=== PATIENT | male | born 1945 | race Caucasian/White ===

== ENCOUNTER → 2018-02-13 | Outpatient (CLI) | payer MEDICARE, OTHER ==
[~2018-02-13] MED LIST: ACET-1966 PO; AMLO-96 PO; AMLO2.5T74 PO; ASPI-1471 PO; CHOL10005 PO; FAMO-67 PO; LATA2.5D5 OP; MULT-865 PO; OLME40TA28 PO; PNEU0.5D3 IM; RANI-366 PO; ROSU20TA23 PO; ROSU40TA18 PO; SILD100T59 PO; SIMV-42 PO; TIMO5DRO3 OP; TRAM-420 PO; UBID30CA27 PO
[2018-02-13 09:20] LABS: PLATELET COUNT, AUTOMATED 137 K/uL (150-450)
== END ==
LOC: LAB 08:52
PROVIDERS: ATTEND Internal Medicine
DX: Z12.5 Encounter for screening for malignant neoplasm of prostate (principal); I10 Essential (primary) hypertension; K21.9 Gastro-esophageal reflux disease without esophagitis; E78.5 Hyperlipidemia, unspecified
CPT/HCPCS: 36415; 81001; 84439; 84443; 85025; G0103; 82040; 82247; 82310; 82374; 82435; 82465; 82565; 82947; 83718; 84075; 84132; 84153; 84155; 84295; 84450; 84460; 84478; 84520

== ENCOUNTER → 2018-02-20 | Outpatient (CLI) | payer MEDICARE, OTHER | LOC: LAB 08:30 | PROVIDERS: ATTEND Internal Medicine | DX: K21.9 Gastro-esophageal reflux disease without esophagitis (principal); E78.5 Hyperlipidemia, unspecified; I10 Essential (primary) hypertension | CPT/HCPCS: 36415; 82746 ==

== ENCOUNTER 2018-07-16 00:39 | Day surgery (SDC) | payer MEDICARE, OTHER ==
[2018-07-16] VITALS (7 sets, daily range): BP systolic 108–150; BP diastolic 67–111
[~2018-07-16] VITALS: Ht 180.3 cm; Wt 90.7 kg
[~2018-07-16 00:39] MED LIST changes: +AMLO-111 PO; -AMLO-96 PO; -AMLO2.5T74 PO; +AMLO2.5T76 PO
[2018-07-16] MEDS ORDERED: LIDOCAINE MPF 1% 5 ML VIAL ONE (09:32)
[2018-07-16] MEDS ORDERED: PROPOFOL EMUL(*) 10MG/ML 20 ML 60 ML ONE (09:32)
[2018-07-16] MEDS ORDERED: LIDOCAINE/SOD BICARB 8.4% SYR ID ONE (09:40)
[2018-07-16] MEDS ORDERED: NORMOSOL R SOLN(*) 1000 ML BAG 1,000 ML IV PRN (09:40)
--- NOTE | 2018-07-16 11:10 | Short(Outpt) Discharge Summary ---
Discharge Summary Reason for Hosp/Final Diag: (1) Colon cancer screening Status: Chronic Hospital Course & Plan: Colonoscopy with polypectomy x3 completed without problems. Departure Discharge to: Home, Self Care Discharge Instructions Home Meds Active Scripts Amlodipine Besylate (AMLODIPINE BESYLATE) 2.5 Mg Tablet, 1 TAB PO QDAY, #30 TAB 5 Refills Prov:AUDI BLACKWELL MD 02/12/18 Rosuvastatin Calcium (CRESTOR) 40 Mg Tablet, 40 MG PO QDAY, #90 TAB 3 Refills Prov:AUDI BLACKWELL MD 02/12/18 Tramadol Hcl (TRAMADOL HCL) 50 Mg Tablet, 1 TAB PO QDAY PRN for PAIN, #60 TAB 2 Refills Prov:AUDI BLACKWELL MD 02/12/18 Olmesartan Medoxomil (BENICAR) 40 Mg Tablet, 40 MG PO QDAY, #90 TAB 3 Refills Prov:AUDI BLACKWELL MD 02/12/18 Reported Medications Acetaminophen (TYLENOL) 325 Mg Tablet, 325 MG PO DAILY PRN for PAIN, TAB 07/03/18 Cholecalciferol (Vitamin D3) (VITAMIN D3) Unknown Strength Tablet, 3000 UNIT PO, TAB 05/20/17 Multivitamin (DAILY MULTIPLE VITAMIN) Unknown Strength Tablet, PO DAILY 05/20/17 Famotidine (FAMOTIDINE) 20 Mg Tablet, 20 MG PO QDAY, TAB 05/20/17 Ubidecarenone (COQ-10) Unknown Strength Capsule, 100 PO QDAY, CAPSULE 05/20/17 Aspirin (ASPIR 81) 81 Mg Tablet.dr, 81 MG PO QDAY, TAB 05/20/17 Diet: Regular Activity: As Tolerated Special Instructions: Your colonoscopy was completed without problems and your prep was excellent (Good Job!!). I removed 3 small polyps from your colon and they were sent to pathology. My office will call you in the next week or 2 to let you know what the polyps are and when your next colonoscopy should be (either 5 or 10 years) depending on whether any of the polyps are precancerous. CRYSTAL HERNANDEZ MD Jul 16, 2018 11:10
== END 2018-07-16 11:50 | disposition home or self-care (01) ==
LOC: OR 00:39
PROVIDERS: ATTEND Surgery
DX: Z12.11 Encounter for screening for malignant neoplasm of colon (principal); D12.0 Benign neoplasm of cecum; D12.8 Benign neoplasm of rectum
CPT/HCPCS: 00811; 45385; 88305; J2001; J2704

== ENCOUNTER → 2018-07-22 | Outpatient (CLI) | payer MEDICARE, OTHER ==
[2018-07-22 10:57] LABS: PLATELET COUNT, AUTOMATED 154 K/uL (150-450)
== END ==
LOC: LAB 10:22
PROVIDERS: ATTEND Internal Medicine
DX: N18.2 Chronic kidney disease, stage 2 (mild) (principal); E78.49 Other hyperlipidemia; R80.1 Persistent proteinuria, unspecified; I10 Essential (primary) hypertension
CPT/HCPCS: 36415; 81001; 82040; 82247; 82310; 82374; 82435; 82465; 82565; 82947; 83718; 84075; 84132; 84155; 84160; 84165; 84295; 84443; 84450; 84460; 84478; 84520; 85025

== ENCOUNTER → 2019-01-19 | Outpatient (CLI) | payer MEDICARE, OTHER ==
[~2019-01-19] MED LIST changes: -AMLO-111 PO; +AMLO-125 PO; -AMLO2.5T76 PO; +AMLO2.5T78 PO; -RANI-366 PO; +RANI-54 PO; -ROSU20TA23 PO; +ROSU20TA24 PO
[2019-01-19 09:59] LABS: PLATELET COUNT, AUTOMATED 144 K/uL (150-450)
== END ==
LOC: LAB 09:37
PROVIDERS: ATTEND Internal Medicine
DX: K59.1 Functional diarrhea (principal); I10 Essential (primary) hypertension; N18.9 Chronic kidney disease, unspecified; E78.5 Hyperlipidemia, unspecified
CPT/HCPCS: 36415; 81001; 82040; 82247; 82274; 82310; 82374; 82435; 82465; 82565; 82947; 83630; 83718; 83993; 84075; 84132; 84155; 84295; 84439; 84443; 84450; 84460; 84478; 84520; 85025; 87045; 87205; 87493

== ENCOUNTER → 2019-01-29 | Outpatient (CLI) | payer MEDICARE, OTHER ==
--- NOTE | 2019-01-29 11:01 | RADIOLOGY IMAGING REPORT ---
FACILITY: [facility] PATIENT NAME: Vicente Cota : 1945 MR: [id number] V: [id number] EXAM DATE: ORDERING PHYSICIAN: AUDI BLACKWELL TECHNOLOGIST: Location: [facility] [place] Patient: Vicente Cota : 1945 Visit/Account:[id number] Date of Sevice: 01/29/2019 CT ABDOMEN PELVIS W/O CON HISTORY: Diarrhea, blood in stool TECHNIQUE: Axial images acquired through the abdomen/pelvis. Coronal and sagittal reformatting also performed. No IV contrast administered.Dose Lowering Technique One of the following dose optimization techniques was utilized in the performance of this exam: Autom ated exposure control; adjustment of the mA and/or kV according to the patient's size; or use of an i terative reconstruction technique. Specific details can be referenced in the facility's radiology C T exam operational policy. COMPARISON: None. FINDINGS: Visualized lung bases: Hepatobiliary: There are numerous hypoattenuating masses throughout the liver. Many of them appear to measure simple fluid density likely representing cysts although not ideally evaluated due to lack of contrast. A member services representative mass in the lateral segment left lobe of the liver measures 2.3 cm a r epresentative mass in the medial right lobe measures 3.1 centimeters Spleen: Negative. Adrenals: There is mild thickening the adrenal glands. There is an 8 mm hypodensity in the right ad renal gland and a 6 mm hypodensity in the left adrenal gland Pancreas: Negative. Kidneys ureters and bladder: There is no demonstration of urolithiasis hydronephrosis or hydroureter. There is a 1.1 cm cortical hyperattenuating mass projecting from the upper pole of the left kidney. Although this could represent a proteinaceous or hemorrhagic cyst or solid mass is also in the differ ential diagnosis The bladder is not ideally evaluated due to numerous streak artifacts in the pelvis from a left hip a rthroplasty. Genitalia: Negative. GI: There is diverticulosis left-sided colon although no CT evidence of acute diverticulitis. There is an incidental diverticulum projecting from the third portion of the duodenum Vessels/spaces/nodes: There moderate vascular calcifications about the abdomen and pelvis. There ar e multiple shotty retroperitoneal lymph nodes Bones/soft tissues: There is streak artifacts in the pelvis from a left hip arthroplasty. There are spondylotic changes in the thoracolumbar spine. Cystic changes are seen in the right iliac bone Additional findings: None pertinent. IMPRESSION: There are numerous hypoattenuating masses throughout the liver. Many of them appear to measure simpl e fluid and likely representing cysts although these are not ideally evaluated due to lack of contras t. Mild thickening the adrenal glands. There is an 8 mm hypodensity in the right adrenal gland and a 6 mm hypodensity in the left adrenal gland. These may simply represent small adenomas although are too small to characterize There is 1.1 cm cortical hyperattenuating mass projecting from the upper pole the left kidney. Diffe rential diagnosis would include a proteinaceous or hemorrhagic cyst versus a solid mass. Further lorie luation with ultrasound or MR may be helpful Diverticulosis of the left-sided colon Additional chronic findings as described Report Dictated By: Rosanne Robles MD at 01/29/2019 10:23 AM Report E-Signed By: Rosanne Robles MD at 01/29/2019 10:57 AM NICKON:[email or web address]
== END ==
LOC: CT 00:53
PROVIDERS: ATTEND Internal Medicine
DX: K57.30 Diverticulosis of large intestine without perforation or abscess without bleeding (principal)
CPT/HCPCS: 74176

== ENCOUNTER → 2019-02-26 | Outpatient (CLI) | payer MEDICARE, OTHER ==
--- NOTE | 2019-02-26 10:30 | RADIOLOGY IMAGING REPORT ---
FACILITY: [facility] [place] PATIENT NAME: Vicente Cota : 1945 MR: [id number] V: [id number] EXAM DATE: ORDERING PHYSICIAN: AUDI BLACKWELL TECHNOLOGIST: Location: [facility] Patient: Vicente Cota : 1945 Visit/Account:[id number] Date of Sevice: 02/26/2019 Technique: ABDOMEN COMPLETE HISTORY: abnormal CT scan, special attention to liver and kidney Comparison: 01/29/2019 Technique: Multiple grayscale, color and Doppler sonographic images were obtained for a complete ultr asound of the abdomen. Findings: The liver is normal in size measuring 15.4 cm. Numerous simple appearing cysts are noted throughout the liver. The largest is located within segment 2 of the left lobe and measures 3.6 x 4.3 x 3.3 cm. No significant vascular hyperemia noted within or adjacent to the interrogated hepatic cysts. Ther e is normal hepatopedal portal venous flow. The spleen is normal in size, contour, and echotexture and measures 9.3 cm in length. Gallbladder wall thickness is 2 mm with no evidence of shadowing stone or sludge within the gallbladd er lumen. Negative sonographic Agosto's sign reported by the technologist. Common duct measures 3 mm in maximum diameter with no evidence of shadowing stone. The pancreas is obscured by bowel gas Abdominal aorta and IVC are patent and unremarkable. The kidneys are normal in size, contour, and echotexture with the right kidney measuring 8.2 cm x 4. 8 cm x 5.3 cm and the left kidney measuring 9.7 cm x 7.7 cm x 5.2 cm. Incidentally noted is a sim ple appearing cyst within the superior pole measuring 1.0 x 0.8 x 1.1 cm IMPRESSION: 1. Numerous benign-appearing hepatic cysts. 2. Simple left-sided renal cyst. 3. Nonvisualization of the pancreas. Report Dictated By: Jerry Maldonado DO at 02/26/2019 10:19 AM Report E-Signed By: Jerry Maldonado DO at 02/26/2019 10:23 AM WSN:[email or web address]
== END ==
LOC: US 00:21
PROVIDERS: ATTEND Internal Medicine
DX: K76.89 Other specified diseases of liver (principal); N28.1 Cyst of kidney, acquired
CPT/HCPCS: 76700